=== PATIENT | male | born 1950 | race Caucasian/White ===

== ENCOUNTER 2018-07-04 09:05 | Day surgery (SDC) | payer MEDICARE, OTHER ==
[~2018-07-04] VITALS: Ht 180.3 cm; Wt 112.0 kg
[2018-07-04] VITALS (13 sets, daily range): BP systolic 129–177; BP diastolic 74–94
[~2018-07-04 09:05] MED LIST: HYDR25TA4 PO; LOSA100T57 PO; cefazolin/dext.iso 2gm/100 ML IV ONE; famotidine 20mg tablet PO ONE; ringers solution, lacted 1,000 ML IV SCH
[2018-07-04] MEDS ORDERED: ceFAZolin 1000mg inj ONE (10:19)
[2018-07-04] MEDS ORDERED: BUPIVAcaine/PF 2.5 mg/ml (0.25%) 30ml vial ONE (10:20)
[2018-07-04] MEDS ORDERED: bacitracin 15gm ointment TP ONE (10:20)
[2018-07-04] MEDS ORDERED: LIDOcaine 1% (10mg/ml) 2ml vial ONE (10:43)
[2018-07-04] MEDS ORDERED: midazolam 2 mg/2 ml injection ONE (11:03)
[2018-07-04] MEDS ORDERED: fentaNYL/PF 50MCG/1 ML 2ML syringe ONE (11:03)
[2018-07-04] MEDS ORDERED: propofol inj 20 ML IV ONE (11:05)
[2018-07-04] MEDS ORDERED: LIDOcaine 2% (20mg/ml) 5ml vial ONE (11:05)
[2018-07-04 11:16] LABS: BASOPHILS # (AUTO) 0.1 X10'3 (0-0.2); BASOPHILS % (AUTO) 0.5 % (0-1); EOSINOPHILS # (AUTO) 0.3 X10'3 (0-0.9); EOSINOPHILS % (AUTO) 2.7 % (0-6); LYMPHOCYTES # (AUTO) 2.1 X10'3 (1.1-4.8); LYMPHOCYTES % (AUTO) 19.9 % (21-51); MEAN CORPUSCULAR HEMOGLOBIN 32.3 PG (27.0-31.0); MEAN CORPUSCULAR HGB CONC 34.7 g/dL (33.0-36.5); MEAN CORPUSCULAR VOLUME 92.8 FL (78-98); MEAN PLATELET VOLUME 9.4 FL (7.4-10.4); MONOCYTES # (AUTO) 0.8 X10'3 (0-0.9); MONOCYTES % (AUTO) 8.2 % (2-12); NEUTROPHILS # (AUTO) 7.1 X10'3 (1.8-7.7); NEUTROPHILS % (AUTO) 68.7 % (42-75); PRE OP HEMATOCRIT 44.6 % (42.0-52.0); PRE OP HEMOGLOBIN 15.5 g/dL (14.0-17.9); PRE OP PLATELET COUNT 209 X10'3 (140-440); RED BLOOD COUNT 4.81 X10'6 (4.70-6.10); RED CELL DISTRIBUTION WIDTH 13.5 % (11.5-14.5)
[2018-07-04 11:27] LABS: ALBUMIN 3.6 G/DL (3.4-5.0); ALBUMIN/GLOBULIN RATIO 1.2 (1.1-1.5); ALKALINE PHOSPHATASE 105 IU/L (46-116); BLOOD UREA NITROGEN 17 MG/DL (7-18); BUN/CREATININE RATIO 15.9 (5.4-32.0); CALCIUM 9.2 MG/DL (8.5-10.1); CHLORIDE 106 MMOL/L (99-107); CREATININE 1.07 MG/DL (0.60-1.10); PRE OP ALT 26 U/L (30-65); PRE OP ANION GAP 5 (8-16); PRE OP AST 21 U/L (10-37); PRE OP BILIRUB, TOTAL 0.9 MG/DL (0.0-1.0); PRE OP GLUCOSE 92 MG/DL (70-104); PRE OP POTASSIUM 3.7 MMOL/L (3.4-5.1); PRE OP SODIUM 143 MMOL/L (135-145); TOTAL CARBON DIOXIDE 32.4 MMOL/L (24-32); TOTAL PROTEIN 6.7 G/DL (6.4-8.2); eGFR 69 ML/MIN
[2018-07-04] MEDS ORDERED: sevoflurane 250ml liquid IH ONE (11:46)
[2018-07-04] MEDS ORDERED: dexamethasone sod phosphate 4mg/ml inj. ONE (11:57)
[2018-07-04] MEDS ORDERED: ondansetron/PF 4mg/2ml inj ONE (11:57)
[2018-07-04 12:11] LABS: CLARITY,URINE CLEAR (Clear); COLOR,URINE YELLOW (Yellow); GLUCOSE, URINE NEGATIVE (Neg); KETONES,URINE NEGATIVE (Neg); LEUKOCYTE ESTERASE ,URINE NEGATIVE (Neg); NITRITES, URINE NEGATIVE (Neg); OCCULT BLOOD,URINE NEGATIVE (Neg); PH,URINE 7.5 (4.8-8.0); PROTEIN,URINE NEGATIVE (Neg); UA COLLECTION TYPE VOIDED; UROBILINOGEN,URINE 0.2 E.U/dL (0.2-1.0)
[2018-07-04] MEDS ORDERED: ePHEDrine 50MG/ML INJ. ONE (12:20)
[2018-07-04] MEDS ORDERED: glycopyrrolate 0.2mg/ml inj ONE (12:20)
[2018-07-04] MEDS ORDERED: ringers solution, lacted 1,000 ML IV SCH (12:27)
[2018-07-04] MEDS ORDERED: meperidine/PF 25mg/ml syringe IV PRN ×3 (12:30)
[2018-07-04] MEDS ORDERED: morphine 4 MG/ML inj SYRINge IV PRN ×2 (12:30)
[2018-07-04] MEDS ORDERED: ondansetron/PF 4mg/2ml inj IV PRN (12:30)
[2018-07-04] MEDS ORDERED: proCHLORperazine 10 MG/2 ml inj IV PRN (12:30)
--- NOTE | 2018-07-04 12:37 | NUR ---
Received from OR via [facility], accompanied by Anesthesiologist DR MURPHY and report given by Anesthesiologist. PT VERY DROWSY, NO S/S OF DISTRESS/DISCOMFORT. VSS. ABDOMEN W/FOAM TAPE COVERING DRSG/INCISION, CDI. Addendum: 07/04/18 at 1308 by Olga Brand RN Amended: Links added.
[2018-07-04] MEDS ORDERED: HYDROcodone/acetaminophen 5mg/325mg tablet PO ONE (14:00)
== END 2018-07-04 14:27 | disposition home or self-care (01) ==
LOC: PRE-OP 09:05 → PAS 14:27
PROVIDERS: ATTEND Surgery
DX: T81.89XA Other complications of procedures, not elsewhere classified, initial encounter (principal); L92.8 Other granulomatous disorders of the skin and subcutaneous tissue; K42.0 Umbilical hernia with obstruction, without gangrene; I10 Essential (primary) hypertension; E66.9 Obesity, unspecified; Z90.49 Acquired absence of other specified parts of digestive tract; Z79.899 Other long term (current) drug therapy; Z82.49 Family history of ischemic heart disease and other diseases of the circulatory system
CPT/HCPCS: 11406; 36415; 80053; 81003; 85025; A6449; J0690; J1100; J2001; J2250; J2405; J2704; J3010; J3490; J7120; 88304; A7000